=== PATIENT | male | born 1975 | race Caucasian/White ===

== ENCOUNTER 2016-11-08 19:14 | Emergency (ER) | payer SELFPAY ==
[~2016-11-08] VITALS: Ht 185.4 cm; Wt 80.0 kg
[~2016-11-08 19:14] MED LIST: Z.0.NO CURRENT MEDS
[2016-11-08 19:15] VITALS: BP 135/84; PULSE 106; RESP 18; TEMP 98.5; O2SAT 95
--- NOTE | 2016-11-08 20:09 | PD ---
Physical Exam Date Seen by Provider: Nov 08, 2016 Time Seen by Provider: 20:05 Data Data Last Documented VS Vital Signs Date Time Temp Pulse Resp B/P Pulse Ox O2 Delivery O2 Flow Rate FiO2 11/08/16 19:15 98.5 106 18 135/84 95 Room Air [facility] Supervised Visit with CLARIBEL: No Narrative Course 40 YO M with complaint of left knee abscess x 4 days. Was receiving IV antibiotics from outside hospital. Left AMA. Denies history of MRSA or IVDA. Vitals reviewed. Awaiting bed placement. Angeles Roberts Nov 08, 2016 20:09
--- NOTE | 2016-11-08 20:48 | PD ---
HPI Chief Complaint: Laceration/Skin Injury Time Seen by Provider: 20:48 Travel History International Travel<30 days: No Contact w/Intl Traveler<30days: No Traveled to known affect area: No History of Present Illness HPI 40-year-old male presents to emergency department for evaluation of left lower extremity cellulitis and abscess status post I&D. Patient states that on Wednesday he was doing yardwork when he sustained a superficial laceration with a chainsaw to his distal left lower extremity. He states he developed a small abscess that he lanced himself. He states it then got worse and Wednesday night, 2 nights ago, he went to [facility]. He was admitted for IV antibiotics and had surgical debridement of the wound yesterday. This morning he checked himself out [facility] and states since he did this they would not give him any additional antibiotics or instructions. He presents here for recommendation of care and further antibiotics. Denies any fever or chills. Denies any worsening. States the area is actually improving. Has no other symptoms to report. He is up-to-date on his tetanus vaccination [facility] Past Medical History Medical History: Denies Significant Hx ?: Not Social History Alcohol Use: Yes Tobacco Use: Yes Substance Use: No Allergies-Medications (Allergen,Severity, Reaction): Coded Allergies: No Known Allergies (Verified Allergy, Mild, 09/22/06) Reported Meds & Prescriptions Reported Meds & Active Scripts Active Ibuprofen 800 Mg Tab 800 Mg PO Q8H PRN Bactrim DS (Sulfamethoxazole-Trimethoprim) 800-160 Mg Tab 1 Tab PO BID Clindamycin (Clindamycin HCl) 150 Mg Cap 300 Mg PO Q6H 10 Days Review of Systems Except as stated in HPI: all other systems reviewed are Neg Physical Exam Narrative GENERAL: Thin male patient, ambulatory no acute distress SKIN: Focused skin assessment warm/dry. 5 cm in diameter wound that appears to be a drained abscess with packing in place. Erythema extends from this area both distally and proximally about [address] No crepitus. No fluctuation. HEAD: Atraumatic. Normocephalic. EYES: Pupils equal and round. No scleral icterus. No injection or drainage. ENT: No nasal bleeding or discharge. Mucous membranes pink and moist. NECK: Trachea midline. No JVD. CARDIOVASCULAR: Tachycardic rate and rhythm. No murmur appreciated. RESPIRATORY: No accessory muscle use. Clear to auscultation. Breath sounds equal bilaterally. GASTROINTESTINAL: Abdomen soft, non-tender, nondistended. Hepatic and splenic margins not palpable. MUSCULOSKELETAL: No obvious deformities. No clubbing. No cyanosis. No edema. NEUROLOGICAL: Awake and alert. No obvious cranial nerve deficits. Motor grossly within normal limits. Normal speech. PSYCHIATRIC: Appropriate mood and affect; insight and judgment normal. Data Data Last Documented VS Vital Signs Date Time Temp Pulse Resp B/P Pulse Ox O2 Delivery O2 Flow Rate FiO2 11/08/16 19:15 98.5 106 18 135/84 95 Room Air Orders Clindamycin Inj (Cleocin Inj) (11/08/16 21:00) [facility] Medical Decision Making Medical Screen Exam Complete: Yes Emergency Medical Condition: Yes Medical Record Reviewed: Yes Differential Diagnosis Abscess versus cellulitis versus erysipelas versus contact dermatitis versus sepsis Narrative Course 40-year-old male presents to emergency department for evaluation. Patient appears without distress. He is always tachycardic but afebrile. The patient does appear to have an abscess status post I&D with associated cellulitis. There is no limitation in range of motion of the left knee. I discussed the patient with my attending physician who has also assessed the patient in the wound. Patient will be given IM clindamycin here. He'll be started on clindamycin and Bactrim outpatient. He is counseled on care. He agrees to return immediately with any acute worsening of symptoms. Diagnosis Primary Impression: Cellulitis and abscess of left leg Referrals: Primary Care Physician Patient Instructions: Abscess (GEN), Cellulitis (ED), General Instructions Additional Instructions: Packing can be removed in 2 days Start antibiotic in the morning. Take it until it is all gone Follow-up with a primary care provider Keep the area clean and dry Elevate to reduce pain and swelling Return immediately with any acute worsening of symptoms Med/Other Pt SpecificInfo: Prescription(s) given Scripts Ibuprofen 800 Mg [id number] Mg PO Q8H PRN (PAIN SCALE 1 TO 10) #30 TAB Ref 0 Prov:Agustina Rendon 11/08/16 Sulfamethoxazole-Trimethoprim (Bactrim DS)800-160 Mg Tab1 Tab PO BID #20 TAB Ref 0 Prov:Agustina Rendon 11/08/16 Clindamycin 150 Mg [id number] Mg PO Q6H 10 Days Ref 0 Prov:Agustina Rendon 11/08/16 Disposition: 01 DISCHARGE HOME Condition: Stable Agustina Rendon Nov 08, 2016 20:48
[2016-11-08] MEDS ORDERED: BACT800T5 PO (20:54)
[2016-11-08] MEDS ORDERED: IBUP800T23 PO (20:54)
[2016-11-08] MEDS ORDERED: CLIN1CAP5 PO (20:54)
[2016-11-08] MEDS ORDERED: CLINDAMYCIN PHOS 600 MG/4 ML VIAL IM ONE (21:00)
== END 2016-11-08 21:25 | disposition home or self-care (01) ==
LOC: NEPC 19:14
DX: L02.416 Cutaneous abscess of left lower limb (principal); Z87.891 Personal history of nicotine dependence
CPT/HCPCS: 96372